=== PATIENT | female | born 1990 | race Caucasian/White ===

== ENCOUNTER 2018-02-24 18:56 | Emergency (ER) | payer MEDICAID ==
[~2018-02-24] VITALS: Ht 162.6 cm; Wt 70.7 kg
[2018-02-24 19:01] VITALS: Ht 162.6 cm; Wt 70.7 kg
[2018-02-24] MEDS ORDERED: IBUPROFEN 800 MG TAB PO ONE (21:30)
[2018-02-24] MEDS ORDERED: IBUP-1542 PO (22:21)
--- NOTE | 2018-02-24 22:27 | ERD ---
ER Documentation Chief Complaint Chief Complaint right knee pain, twisted knee while going down stairs yesterday HPI 27-year-old female presents for right knee pain times 1 day. She states that yesterday she was going down a couple of steps on a small ladder and fell from the second step. She states that she twisted her right knee. Pain is noted to be 8 out of 10. She denies any ankle pain or hip pain. ROS All systems reviewed and are negative except as per history of present illness. Medications Home Meds Active Scripts Ibuprofen* (Motrin*) 600 Mg Tab, 600 MG PO Q6H PRN for PAIN AND OR ELEVATED TEMP, #30 TAB Prov:MARQUIS GARZA DO 02/24/18 Allergies Allergies: Coded Allergies: No Known Drug Allergies (Verified Allergy, Unknown, 02/24/18) PMhx/Soc Medical and Surgical Hx: pt denies Medical Hx, pt denies Surgical Hx Hx Alcohol Use: No Hx Substance Use: No Hx Tobacco Use: No Smoking Status: Never smoker Physical Exam Vitals Vital Signs Date Temp Pulse Resp B/P (MAP) Pulse Ox O2 O2 Flow FiO2 Time Delivery Rate 02/24/18 99.4 77 18 115/61 99 19:01 (79) Physical Exam Const: No acute distress Resp: Clear to auscultation bilaterally Cardio: Regular rate and rhythm, no murmurs, bilateral dorsalis pedis pulses intact Skin: No petechiae or rashes Back: No midline or flank tenderness Ext: Right knee swelling noted mostly over the medial side, patient has decreased range of motion due to pain. Neur: Awake and alert, bilateral lower extremity sensation intact Psych: Normal Mood and Affect Results 24 hrs Current Medications Medications Dose Sig/Brennon Start Time Status Last (Trade) Ordered Route PRN Stop Time Admin Dose Reason Admin Ibuprofen 800 mg ONCE ONCE 02/24/18 DC 02/24/18 (Motrin) PO 21:30 02/24/18 21:32 21:31 Procedures/MDM Medical Decision Making: Differential diagnosis includes but not limited to right knee sprain, fracture, dislocation. Patient appear well on physical examination. Right knee exam showed swelling mostly on the medial side, there was decreased r henok of motion due to pain. Right knee x-ray was negative for fracture. Patient already had a right knee sleeve. Patient provided with crutches for comfort. Given prescription for Motrin and Tylenol. Patient advised to follow up with PCP in 1-2 days. Patient advised to return to ED for new or worsening symptoms. Patient stable on discharge from the ED. Disclaimer: Inadvertent spelling and grammatical errors are likely due to EHR/dictation software use and do not reflect on the overall quality of patient care. Also, please note that the electronic time recorded on this note does not necessarily reflect the actual time of the patient encounter. Departure Diagnosis: Primary Impression: Knee injury Encounter type: initial encounter Laterality: right Qualified Codes: S89.91XA - Unspecified injury of right lower leg, initial encounter Condition: Fair Patient Instructions: Knee Sprain Referrals: [facility] YOU HAVE RECEIVED A MEDICAL SCREENING EXAM AND THE RESULTS INDICATE THAT YOU DO NOT HAVE A CONDITION THAT REQUIRES URGENT TREATMENT IN THE EMERGENCY DEPARTMENT. FURTHER EVALUATION AND TREATMENT OF YOUR CONDITION CAN WAIT UNTIL YOU ARE SEEN IN YOUR DOCTORS OFFICE WITHIN THE NEXT 1-2 DAYS. IT IS YOUR RESPONSIBILITY TO MAKE AN APPOINTMENT FOR FOLOW-UP CARE. IF YOU HAVE A PRIMARY DOCTOR --you should call your primary doctor and schedule an appointment IF YOU DO NOT HAVE A PRIMARY DOCTOR YOU CAN CALL OUR PHYSICIAN REFERRAL HOTLINE AT IF YOU CAN NOT AFFORD TO SEE A PHYSICIAN YOU CAN CHOSE FROM THE FOLLOWING [facility] [address] [facility]. [facility] [address] [facility]. [facility] [address] [facility] [facility] [facility] [address] [facility]. [facility] [address] [facility]. [facility]. [address] Additional Instructions: Llame al doctor MAANA y salazar sudha DEBBIE PARA DENTRO DE 1-2 TAN.Dgale a la secretaria que nosotros le instruimos hacer esta debbie.Avise o llame si schulz condicin se empeora antes de la debbie. Regresa aqui si peor o no mejor. MARQUIS GAZRA DO Feb 24, 2018 22:27
== END 2018-02-24 23:11 | disposition home or self-care (01) ==
LOC: FTE 18:56
DX: S89.91XA Unspecified injury of right lower leg, initial encounter (principal); W11.XXXA Fall on and from ladder, initial encounter; Y92.9 Unspecified place or not applicable
CPT/HCPCS: 73562; Z7502; Z7610